=== PATIENT | male | born 1985 | race Two or more races ===

== ENCOUNTER 2020-05-21 02:59 | Emergency (ER) | payer OTHER ==
[~2020-05-21] VITALS: Ht 165.1 cm; Wt 95.3 kg
--- NOTE | 2020-05-21 03:00 | NUR ---
[id number] FROM HOME C/O CHEST DISCOMFORT AND SOB X3 DAYS +FEVER, +COUGH, LAST DOSE TYLENOL; pt awake,alert, placed on monitor, vss. noted +fever. pending er provider jackie
[2020-05-21] MEDS ORDERED: ACETAMINOPHEN ES 500 MG TABLET ONE (03:30)
[2020-05-21] MEDS ORDERED: ACETAMINOPHEN 325 MG TABLET PO ONE (03:30)
[2020-05-21] MEDS ORDERED: IV NS 0.9% 1,000 ML BAG IV ONE (03:30)
--- NOTE | 2020-05-21 03:30 | NUR ---
covid swab sent
[2020-05-21 03:41] LABS: BASOPHILS % (AUTO) 0.2 % (0.0-2.0); HEMATOCRIT 42 % (39-51); HEMOGLOBIN 14.5 g/dL (13.5-17.5); LYMPHOCYTES # (AUTO) 0.8 /CMM (0.8-4.8); MEAN CORPUSCULAR HGB CONC 35 g/dl (31.0-36.0); MEAN CORPUSCULAR VOLUME 91 fL (80-96); MONOCYTES # (AUTO) 1.2 /CMM (0.1-1.30); NEUTROPHILS # (AUTO) 17.6 /CMM (1.8-8.9); NEUTROPHILS % (AUTO) 89.8 % (43.0-81.0); PLATELET COUNT (AUTO) 254 /CMM (150-450); RED BLOOD CELL COUNT(AUTO) 4.59 MIL/uL (4.5-6.0); WHITE BLOOD COUNT (AUTO) 19.6 K/uL (4.3-11.0)
[2020-05-21 03:44] LABS: CALCIUM, SERUM 8.7 mg/dL (8.5-10.1); CARBON DIOXIDE 26 mmol/L (21-32); CHLORIDE 93 mmol/L (98-107); CREATININE 0.8 mg/dL (0.6-1.3); GLUCOSE 312 mg/dL (74-106); POTASSIUM 3.7 mmol/L (3.5-5.1); SODIUM SERUM 131 mmol/L (136-145); UREA NITROGEN, BLOOD 9 mg/dL (7-18)
[2020-05-21 03:58] LABS: ALANINE AMINOTRANSFERASE 57 U/L (12-78); ALBUMIN 2.5 g/dL (3.4-5.0); ALKALINE PHOSPHATASE 110 U/L (46-116); ASPARTATE AMINOTRANSFERASE 25 U/L (15-37); BILIRUBIN,DIRECT 0.4 mg/dL (0.0-0.2); BILIRUBIN,TOTAL 0.8 mg/dL (0.2-1.0); TOTAL PROTEIN, SERUM 7.4 g/dL (6.4-8.2)
[2020-05-21 04:27] VITALS: BP 140/77
[2020-05-21 04:51] LABS: APPEARANCE,URINE Clear (CLEAR); BILIRUBIN,URINE Negative (NEGATIVE); BLOOD, URINE Moderate Ery/uL (NEGATIVE); COLOR,URINE Yellow (YELLOW); KETONES,URINE >=160 (NEGATIVE); LEUKOCYTE ESTERASE ,URINE Negative (NEGATIVE); NITRITE, URINE Negative (NEGATIVE); PH,URINE 5.5 (5.0-8.0); PROTEIN,URINE 100 mg/dl (NEGATIVE); UGLUCOSE 500 MG/DL mg/dL (NEGATIVE)
[2020-05-21 04:52] LABS: BACTERIA,URINE Few /HPF (None Seen); SQUAMOUS EPITHELIAL CELL,UR Rare /HPF (None Seen); YEAST,URINE Few /HPF (None Seen)
--- NOTE | 2020-05-21 05:59 | NUR ---
Patient discharged to home in stable condition. Written and verbal after care instructions given. Patient verbalizes understanding of instruction. IV removed. Catheter intact and site benign. Pressure and 4x4 applied to site. No bleeding noted.
== END 2020-05-21 06:03 | disposition home or self-care (01) ==
LOC: ER 03:02
DX: U07.1 COVID-19 (principal); J12.89 Other viral pneumonia; R00.0 Tachycardia, unspecified; E11.9 Type 2 diabetes mellitus without complications
CPT/HCPCS: 36415; 71045; 80048; 80076; 81001; 83605; 84484; 85025; 85730; 87040 ×2; 87086; 87804; 93005; 96360; 99285; C9803; J7030; U0003; 81000-TC

== ENCOUNTER 2020-06-04 08:43 | Emergency (ER) | payer OTHER ==
[~2020-06-04] VITALS: Ht 165.1 cm; Wt 86.2 kg
--- NOTE | 2020-06-04 08:52 | NUR ---
PT AMBULATORY TO ER BED 07. STATES HERE FOR A FOLLOW UP AFTER TESTING POSITIVE FOR COVID19 LAST 05/21/20. PT STATES HE IS NOT FEELING ANY WORST BUT WAS FEBRILE AND TACHYCARDIC FURNITURE CRATER. PT PLACED ON ISOLATION ROOM. AWAITING MD WHITE.
[2020-06-04] MEDS ORDERED: ACETAMINOPHEN ES 500 MG TABLET ONE (08:59)
--- NOTE | 2020-06-04 09:01 | NUR ---
SEEN AND EVALUATED BY GAVI WALTON. TYLENOL 1G PO GIVEN.
[2020-06-04] MEDS ORDERED: ACETAMINOPHEN ES 500 MG TABLET PO ONE (10:00)
[2020-06-04 10:10] VITALS: BP 129/81
== END 2020-06-04 10:11 | disposition home or self-care (01) ==
LOC: ER 08:49
DX: U07.1 COVID-19 (principal); J12.89 Other viral pneumonia; J91.8 Pleural effusion in other conditions classified elsewhere; E11.9 Type 2 diabetes mellitus without complications; I51.7 Cardiomegaly
CPT/HCPCS: 71045-TC

== ENCOUNTER 2022-08-01 22:04 | Emergency (ER) | payer OTHER ==
[~2022-08-01] VITALS: Ht 165.1 cm; Wt 88.5 kg
[2022-08-02 00:10] LABS: BASOPHILS # (AUTO) 0.1 K/uL (0.0-0.2); BASOPHILS % (AUTO) 0.7 % (0.0-2.0); EOSINOPHILS % (AUTO) 2.1 % (0.0-6.0); HEMATOCRIT 43 % (39-51); HEMOGLOBIN 14.6 g/dL (13.5-17.5); LYMPHOCYTES # (AUTO) 2.4 K/uL (0.8-4.8); LYMPHOCYTES % (AUTO) 33.4 % (20.0-44.0); MEAN CORPUSCULAR HGB CONC 34 g/dl (31.0-36.0); MEAN CORPUSCULAR VOLUME 88 fL (80-96); MONOCYTES # (AUTO) 0.8 K/uL (0.1-1.30); MONOCYTES % (AUTO) 11.2 % (2.0-12.0); NEUTROPHILS # (AUTO) 3.7 K/uL (1.8-8.9); NEUTROPHILS % (AUTO) 52.6 % (43.0-81.0); PLATELET COUNT (AUTO) 278 K/uL (150-450); RED BLOOD CELL COUNT(AUTO) 4.89 MIL/uL (4.5-6.0); WHITE BLOOD COUNT (AUTO) 7.1 K/uL (4.3-11.0)
[2022-08-02 00:19] LABS: CALCIUM, SERUM 8.7 mg/dL (8.5-10.1); CREATININE 0.7 mg/dL (0.6-1.3); POTASSIUM 4.4 mmol/L (3.5-5.1)
[2022-08-02 00:30] LABS: ALBUMIN 3.1 g/dL (3.4-5.0); BILIRUBIN,TOTAL 0.2 mg/dL (0.2-1.0); MAGNESIUM 1.8 mg/dL (1.8-2.4); TOTAL PROTEIN, SERUM 6.8 g/dL (6.4-8.2)
[2022-08-02 00:47] VITALS: BP 148/70
--- NOTE | 2022-08-02 00:48 | NUR ---
Patient discharged to home in stable condition. Written and verbal after care instructions given. Patient verbalizes understanding of instruction.
== END 2022-08-02 00:48 | disposition home or self-care (01) ==
LOC: ER 22:04
DX: T67.5XXA Heat exhaustion, unspecified, initial encounter (principal); L30.9 Dermatitis, unspecified; E11.9 Type 2 diabetes mellitus without complications; X58.XXXA Exposure to other specified factors, initial encounter; Y93.89 Activity, other specified; Y92.89 Other specified places as the place of occurrence of the external cause; Y99.8 Other external cause status
CPT/HCPCS: 36415; 80053-TC; 82550-TC; 83735-TC; 85025-TC

== ENCOUNTER 2023-09-16 07:56 | Emergency (ER) | payer OTHER ==
[~2023-09-16] VITALS: Ht 165.1 cm; Wt 88.5 kg
[2023-09-16 08:53] VITALS: TEMP 98.4
[2023-09-16] MEDS ORDERED: IV NS 0.9% 1,000 ML BAG IV ONE (09:00)
[2023-09-16 09:27] LABS: BASOPHILS # (AUTO) 0.1 K/uL (0.0-0.2); BASOPHILS % (AUTO) 0.7 % (0.0-2.0); EOSINOPHILS # (AUTO) 0.1 K/uL (0.0-0.7); EOSINOPHILS % (AUTO) 1.3 % (0.0-6.0); HEMATOCRIT 44 % (39-51); HEMOGLOBIN 14.7 g/dL (13.5-17.5); LYMPHOCYTES # (AUTO) 1.7 K/uL (0.8-4.8); LYMPHOCYTES % (AUTO) 17.6 % (20.0-44.0); MEAN CORPUSCULAR HEMOGLOBIN 30 PG (26.0-33.0); MEAN CORPUSCULAR HGB CONC 33 g/dl (31.0-36.0); MEAN CORPUSCULAR VOLUME 89 fL (80-96); MONOCYTES % (AUTO) 9.7 % (2.0-12.0); NEUTROPHILS % (AUTO) 70.7 % (43.0-81.0); PLATELET COUNT (AUTO) 324 K/uL (150-450); RED BLOOD CELL COUNT(AUTO) 4.99 MIL/uL (4.5-6.0); RED CELL DISTRIBUTION WIDTH 12.8 % (11.5-15.0); WHITE BLOOD COUNT (AUTO) 9.9 K/uL (4.3-11.0)
[2023-09-16 09:47] LABS: ALBUMIN 2.8 g/dL (3.4-5.0); BILIRUBIN,DIRECT 0.1 mg/dL (0.0-0.2); BILIRUBIN,TOTAL 0.4 mg/dL (0.2-1.0); CALCIUM, SERUM 8.7 mg/dL (8.5-10.1); CREATININE 0.9 mg/dL (0.6-1.3); POTASSIUM 4.4 mmol/L (3.5-5.1); TOTAL PROTEIN, SERUM 6.6 g/dL (6.4-8.2)
[2023-09-16] MEDS ORDERED: IOHEXOL-300 100 ML VIAL IV ONE (10:13)
[2023-09-16] MEDS ORDERED: IV NS 0.9% 250 ML IV ONE (10:13)
[2023-09-16 11:11] LABS: APPEARANCE,URINE CLEAR (CLEAR); BILIRUBIN,URINE NEGATIVE (NEGATIVE); BLOOD, URINE 1+ Ery/uL (NEGATIVE); COLOR,URINE YELLOW (YELLOW); KETONES,URINE NEGATIVE (NEGATIVE); LEUKOCYTE ESTERASE ,URINE NEGATIVE (NEGATIVE); NITRITE, URINE NEGATIVE (NEGATIVE); PH,URINE 5.5 (5.0-8.0); PROTEIN,URINE NEGATIVE (NEGATIVE); UGLUCOSE 3+ mg/dL (NEGATIVE); UROBILINOGEN,URINE 0.2 EU/dL (0.2)
[2023-09-16 11:27] LABS: RBC,URINE 0-3 /HPF (0-2)
[2023-09-16 11:28] LABS: ADD URINE CULTURE NO; BACTERIA,URINE None seen /HPF (None Seen); SQUAMOUS EPITHELIAL CELL,UR Rare /HPF (None Seen); WBC,URINE 0-2 /HPF (0-3)
[2023-09-16 12:40] VITALS: BP 122/84; O2SAT 100
== END 2023-09-16 12:40 | disposition home or self-care (01) ==
LOC: ER 08:00
DX: R10.30 Lower abdominal pain, unspecified (principal); E11.9 Type 2 diabetes mellitus without complications
CPT/HCPCS: 99285; 74177; 96360; 85025; 80048; 87086; 83690; 80076; 81001; 36415; J7030; J7050; Q9967